=== PATIENT | male | born 1960 | race Two or more races ===

== ENCOUNTER → 2019-01-06 | Outpatient (CLI) | payer BC ==
[~2019-01-06] MED LIST: HYDACE5 PO; NAPR500 PO; Norco 10-325 T1 EACH PO; OXYACE5T PO; RXHYDACE PO
== END | disposition home or self-care (01) ==
LOC: LAB SHORT 14:00 → LAB EV 14:00
DX: Z51.81 Encounter for therapeutic drug level monitoring (principal); Z79.899 Other long term (current) drug therapy
CPT/HCPCS: G0480

== ENCOUNTER 2019-06-10 08:55 | Day surgery (SDC) | payer BC ==
[~2019-06-10] VITALS: Ht 170.2 cm; Wt 74.0 kg
[~2019-06-10 08:55] MED LIST changes: +CALCIUM 500 MG1 EACH PO; +VITAMIN D325 GM PO
[2019-06-10] MEDS ORDERED: NITR.4SL SL (09:19)
[2019-06-10] MEDS ORDERED: METO25ER PO (09:19)
[2019-06-10] MEDS ORDERED: ASPI81CH PO (09:19)
--- NOTE | 2019-06-10 09:37 | NUR ---
PLAVIX AND SALINE PLAVIX 600PO GIVEN NOW AND NS 50ML PRE HOUR STARTED NOW.
--- NOTE | 2019-06-10 11:44 | NUR ---
PT ARRIVED BACK TO RECOVERY ROOM, WITH TR BAND ON RIGHT WRIST, SMALL QUATER SIZED HEMATOMA NOTED. MANUAL PRESSURE/MASSAGE TO AREA. PT MEDICATED WITH FENTANYL 50 MCG DURING HOLD. CONTINUED TO HAVE FACIAL GRIMACING, TENSE POSTURE, VERBAL QUES OF DISCOMFORT. MEDICATED WITH FENTANYL 50 MCG IVP WITH TOTAL OF 100 MCG GIVEN IN RECOVERY ROOM. SECOND TR BAND PLACED PER MD ORDER. CAP REFILL >3 SECONDS, SKIN WARM AND DRY ON RIGHT HAND. WILL CONTINUE TO MONITOR. PT RESTING IN RECLINER CHAIR WITH FEET ELEVATED, TR BANDS REMAIN ON, SITE NOW STABLE. WILL CONTINUE TO MONITOR.
--- NOTE | 2019-06-10 12:34 | NUR ---
SECOND TR BAND DEFLATED AND REMOVED. AREA UNDERNEATH WHERE HEMATOMA USED TO BE, IS NOW SOFT, TENDER TO TOUCH, PT REPORTS DECREASED PAIN TO THIS AREA. ORIGINAL TR BAND REMAINS ON WITH AIR IN. WILL CONTINUE TO MONITOR.
--- NOTE | 2019-06-10 13:15 | NUR ---
RADIAL SITE NOTED SWELLING PAST TR BAND. PT STATED PAIN LEVEL 10/10 WITH 1 INCH SWELLING PAST TR BAND ALL THE WAY ACCROSS THE RIGHT WRIST. EDD WAS ABLE TO AQUIRE PAIN MEDICATION ORDERS AND ORDERS TO WRAP PT'S ARM WITH PRESSURE DRESSING. -R RADIAL SITE BEYOND TR BAND HELD FOR 20 MINUTES-FOLLOWED BY PRESSURE DRESSING APPLIED FROM TR BAND UP PAST BICEPT @ 1335. PT NOW STATES PAIN LEVEL OF 0/10.
--- NOTE | 2019-06-10 14:29 | NUR ---
PRESSURE DRESSING PRESSURE DRESSING REMOVED @1410-HEMATOMA AND SWELLING RESOLVED. PT DENIED ANY PAIN AT THIS TIME. 2CC'S OF AIR REMOVED FROM BAND.
--- NOTE | 2019-06-10 15:37 | NUR ---
RIGHT RADIAL SITE. AFTER GOING TO THE RESRTOOM AND DRESSING WITH THE TR BAND IN PLACE. UPON REMOVING TR BAND A [address] ACCROSS THE WRIST HEMATOMA APPEARED. PRESSURE WAS HELD FOR [address] GEIGER'S CAME BY TO ASSESS THE RADIAL SITE. PRESSURE DRESSING WAS PLACED. PRESSURE DRESSING WILL REMAIN FOR 30 MIN AND THEN REMOVED FOR 5 AND PLACED AGAIN FOR 30 MIN. AT THIS TIME THE RADIAL SITE WILL BE RE-EVALUATED FOR DISCHARGE PER DR. GEIGER'S ORDERS.
--- NOTE | 2019-06-10 16:48 | NUR ---
PRESSURE DRESSING REMOVED. DR. GEIGER PRESENT. 2 TR BANDS PLACED UNTIL [address] GEIGER VERBAL ORDER.
--- NOTE | 2019-06-10 16:52 | NUR ---
DOUBLE TR BANDS PLACE ON RIGHT RADIAL SITE. PROXIMAL TO WRIST 8CC'S AIR. DISTAL TO SITE 12CC'S AIR PLACE.-CDI, 2 SMALL HEMATOMAS NOTED BEFORE PLACEMENT OF TR BANDS. WILL CONTINUE TO MONITOR.
--- NOTE | 2019-06-10 17:44 | NUR ---
PT DOUBLE TR BANDS FULLY DEPLOYED. DR FARNSWORTH IN ROOM. TR BANDS REMOVED. NO HEMATOMA OR BLEEDING NOTED. PER PRESSURE DSG WITH SPLINT AND SLING. PT WILL REMOVE PRESSURE DSG THIS EVENING AND DO A COLD COMPRESS ALONG WITH COLD COMPRESS TOMORROW AM FOR SWELLING. PT AND FAMILY ALL VERBALIZES UNDERSTANDING WRITTEN AND VERBAL ORDERS. PT IV DC'D. CATH INTACT. PRESSURE DSG APPLIED. PT AMBULATES TO AND FROM RESTROOM WITHOUT DIFF. PT DC TO HOME VIA FAMILY BY WC.
== END 2019-06-10 17:50 | disposition home or self-care (01) ==
LOC: MHTC 08:55
PROC: B201YZZ Plain Radiography of Multiple Coronary Arteries using Other Contrast (ICD-10-PCS; principal; 2019-06-10)
PROC: 4A023N7 Measurement of Cardiac Sampling and Pressure, Left Heart, Percutaneous Approach (ICD-10-PCS; principal; 2019-06-10)
DX: I25.10 Atherosclerotic heart disease of native coronary artery without angina pectoris (principal); I10 Essential (primary) hypertension; M19.90 Unspecified osteoarthritis, unspecified site; F17.210 Nicotine dependence, cigarettes, uncomplicated; Z79.82 Long term (current) use of aspirin; Z79.899 Other long term (current) drug therapy
CPT/HCPCS: 76937; 93454; 99152; 99153; C1769; C1894; J1644; J2250; J3010; J7030; Q9967

== ENCOUNTER → 2023-03-17 | Outpatient (CLI) | payer BC ==
[~2023-03-17] MED LIST changes: +ASPI81CH PO; +METO25ER PO; +NITR.4SL SL
[2023-03-17 18:50] LABS: BASOPHILS ABSOLUTE AUTO 0.09 K/mm3 (0.00-0.23); BASOPHILS PERCENT AUTO 2 % (0-2); EOSINOPHILS ABSOLUTE AUTO 0.38 K/mm3 (0.00-0.68); EOSINOPHILS PERCENT AUTO 6 % (0-6); Hemoglobin 17.1 g/dL (13.5-17.5); IMMATURE GRAN ABSOLUTE AUTO 0.01 K/mm3 (0.00-0.10); IMMATURE GRAN PERCENT AUTO 0 % (0-1); LYMPHOCYTES ABSOLUTE AUTO 1.76 K/mm3 (0.84-5.20); LYMPHOCYTES PERCENT AUTO 29 % (21-46); MONOCYTES ABSOLUTE AUTO 0.58 K/mm3 (0.16-1.47); MONOCYTES PERCENT AUTO 10 % (4-13); Mean Corpuscular HGB Conc 34.9 g/dL (31.5-36.5); Mean Corpuscular Volume 103 fL (80-100); Mean Platelet Volume 10.6 fL (9.1-12.4); NEUTROPHILS ABSOLUTE AUTO 3.29 K/mm3 (1.96-9.15); NEUTROPHILS PERCENT AUTO 54 % (41-73); Platelet Count 300 K/mm3 (150-400); RDW Coefficient Variation 12.6 % (11.7-14.2); RDW Standard Deviation 48.7 fL (35.1-46.3); Red Blood Cell Count 4.75 M/mm3 (4.30-5.90); White Blood Cell Count 6.11 K/mm3 (4.00-11.30)
[2023-03-17 19:01] LABS: Alanine Aminotransfer (ALT/SGP 63 U/L (12-78); Albumin/Globulin Ratio 1.1 (0.8-1.8); Alk Phos 105 U/L (50-136); Anion Gap 4 mmol/L (6-16); Aspartate Aminotrans (AST/SGOT 55 U/L (12-37); Bilirubin, Total 0.4 mg/dL (0.1-1.0); Blood Urea Nitrogen 4 mg/dL (8-24); Bun/Creatinine Ratio 6.5 (12.0-20.0); CHOL/HDL RATIO 2.2; CO2, Blood 27 mmol/L (21-32); Calcium, Blood 8.9 mg/dL (8.5-10.1); Chloride, Blood 110 mmol/L (98-108); Cholesterol 168 mg/dL (50-200); Creatinine, Blood 0.62 mg/dL (0.60-1.20); Globulin, Blood 3.7 g/dL (2.2-4.0); Glomerular Filtration Rate 108 (60-); Glucose, Blood 85 mg/dL (70-99); HDL Cholesterol 75 mg/dL (>39); LDL/HDL RATIO 1.1; Low Density Lipoprotein Chol 81 mg/dL (0-110); Potassium, Blood 4.4 mmol/L (3.5-5.5); Prostate Specific Antigen 0.519 ng/mL (0.000-4.000); Sodium, Blood 141 mmol/L (136-145); Total Protein, Blood 7.7 g/dL (6.4-8.2); Triglycerides 60 mg/dL (30-160); Very Low Density Lipoprot Chol 12 mg/dL (6-32)
== END ==
LOC: LAB 10:25 → LAB SHORT 10:25
PROVIDERS: Physician Assistant
DX: Z00.00 Encounter for general adult medical examination without abnormal findings (principal); Z13.220 Encounter for screening for lipoid disorders; Z12.5 Encounter for screening for malignant neoplasm of prostate
CPT/HCPCS: 80053; 80061; 85025; G0103

== ENCOUNTER → 2023-06-15 | Outpatient (CLI) | payer OTHER | END | disposition home or self-care (01) | LOC: LAB SHORT 16:30 → LAB 16:30 | PROVIDERS: Physician Assistant | DX: G89.4 Chronic pain syndrome (principal) | CPT/HCPCS: G0480 ==